=== PATIENT | male | born 1960 | race Caucasian/White ===

== ENCOUNTER 2018-09-13 15:03 | Observation (INO) | payer OTHER ==
[2018-09-13 15:34] LABS: #Basophils 0.1 thou/uL (0.0-0.2); #Eosinphils 0.4 thou/uL (0.0-0.7); #Lymphocytes 1.7 thou/uL (1.20-3.40); #Monocytes 0.7 thou/uL (0.11-0.59); %Basophils 0.7 % (0.0-1.0); %Eosinophils 4.2 % (0.0-10.0); %Lymphocytes 19.7 % (21.0-51.0); %Monocytes 7.3 % (0.0-10.0); %Neutrophils 68.1 % (42.0-75.0); Hemoglobin 15.1 g/dL (14.0-18.0); Mean Corpuscular HGB CONC 33.5 g/dL (32.0-36.0); Mean Corpuscular Hemoglobin 31.6 pg (27.0-31.0); Mean Corpuscular Volume 94.5 fL (78.0-98.0); Mean Platelet Volume 7.9 fL (7.4-10.4); Platelet Count 211 thou/uL (130-400); RBC Distribution Width 12.4 % (11.5-14.5); Red Blood Cell (RBC) Count 4.77 mill/uL (4.70-6.10); White Blood Cell (WBC) Count 8.8 thou/uL (4.8-10.8)
--- NOTE | 2018-09-13 15:56 | RAD ---
TWO VIEWS CHEST: 09/13/18 PROVIDED CLINICAL HISTORY: Chest pain. FINDINGS: Comparison 10/10/12. The cardiac and mediastinal silhouette is unchanged in appearance. Median sternotomy changes are seen . No focal consolidation, pleural fluid or pneumothorax apparent. IMPRESSION: No evidence for an acute cardiopulmonary process. POS: TPC
[2018-09-13 16:00] LABS: ALT (SGPT) 32 U/L (8-55); AST (SGOT) 21 U/L (5-34); Albumin 4.3 g/dL (3.5-5.0); Alkaline Phosphatase 71 U/L (40-150); Anion Gap 14 mmol/L (10-20); BUN (Urea Nitrogen) 14 mg/dL (8.4-25.7); Bilirubin, Total 0.6 mg/dL (0.2-1.2); CK (CPK) 89 U/L (30-200); Calc. Creatinine Clearance 0 mL/min (70-130); Calcium 9.5 mg/dL (7.8-10.44); Carbon Dioxide 29 mmol/L (22-29); Chloride 103 mmol/L (98-107); Estimated GFR-MDRD 77; Globulin 2.5 g/dL (2.4-3.5); Glucose 132 mg/dL (70-105); Potassium 4.5 mmol/L (3.5-5.1); Protein, Total 6.8 g/dL (6.0-8.3); Sodium 141 mmol/L (136-145)
[2018-09-13] MEDS ORDERED: Aspirin Chewable 81 MG TAB ONE (17:11)
[2018-09-13 19:11] LABS: Troponin I Less than 0.010 ng/mL (< 0.028)
[2018-09-13] MEDS ORDERED: Bisacodyl 5 MG TAB PO PRN (21:13)
[2018-09-13] MEDS ORDERED: Acetaminophen 325 MG TAB PO PRN (21:13)
[2018-09-13] MEDS ORDERED: hydrALAZINE 20 MG/ML VIAL SLOW IVP PRN (21:13)
[2018-09-13] MEDS ORDERED: Ondansetron PF 4 MG/2 ML Vial IVP PRN (21:13)
[2018-09-13] MEDS ORDERED: Nitroglycerin 0.4 MG TAB (25 Tab Bottle) PO PRN (21:13)
[2018-09-13] MEDS ORDERED: HYDROcodone/Acetaminophen 5/325 mg Tablet PO PRN (21:13)
[2018-09-13 21:30] VITALS: BMI 39.7
--- NOTE | 2018-09-13 21:41 | HP ---
PRIMARY CARE PHYSICIAN: Dr. Nguyen, [facility]. PRODUCTION LAPPING MACHINE OPERATOR: Dr. Barry. CHIEF COMPLAINT: Chest pain and back pain. HISTORY OF PRESENT ILLNESS: The patient is a 58-year-old male with past medical history of coronary artery disease, status post CABG and stents and hypertension , who presents to the emergency department for chest pain and back pain. The patient reports that his pain started from his back and was going to his chest. The patient felt suddenly burning sensation. The patient reported that 10 to 12 years ago he had a similar pain that was in his left arm. The patient came to the ER and was found to have blockages. The patient has stent. The patient 2 years later had another chest pain and came to the ER and was noted to have several blockages. The patient at that time needed CABG. Since then, the patient has not needed any intervention. The patient followed up with his check inspector, Dr. Barry. The patient reports he had an echo at his check inspector about 3 to 4 weeks ago. The patient during my interview, denied any chest pain at that point. The patient was reported that he is compliant with his medication. PAST MEDICAL HISTORY: Hypertension, coronary artery disease, CABG. PAST SURGICAL HISTORY: CABG and stents. ALLERGIES: NOT NOTED TO BE ANY. SOCIAL HISTORY: The patient is a past smoker, has not smoked in over 10 years. MEDICATIONS: 1. Aspirin. 2. Lisinopril. 3. Plavix. 4. Coreg. 5. Furosemide. 6. Ezeta. 7. Nitroglycerin. REVIEW OF SYSTEMS: A 10-point review of system negative other than mentioned in the HPI. PHYSICAL EXAMINATION: VITAL SIGNS: Blood pressure 137/76, pulse 62, respiration rate 20, O2 96% on room air, temperature 97.6 Fahrenheit. GENERAL AND CONSTITUTIONAL: Alert and noted in no acute distress. HEENT: Head, atraumatic. Ears and throat, grossly normal. No exudate noted. NECK: No lymphadenopathy noted. CHEST AND CARDIOVASCULAR: Nontender. Regular rate and rhythm. No murmurs, rubs, or gallops. RESPIRATORY: Clear bilaterally. No wheezes noted. ABDOMEN: Soft, nontender. Bowel sounds positive. EXTREMITIES: No edema. NEURO: The patient is alert. SKIN: No rashes noted. DIAGNOSTIC STUDIES: EKG reviewed and noted to be significant for sinus arrhythmia with premature atrial complexes. A chest x-ray reviewed and noted to be in no acute evidence of acute cardiopulmonary processes. LABORATORY DATA: The patient's labs reviewed. CBC, negative for any acute abnormality. CMP reviewed sodium 141, potassium 4.5, chloride 103, bicarb 29, BUN 14, creatinine 0.99, glucose 132. Troponin 0.011. ASSESSMENT AND PLAN: 1. Chest pain. Chest pain resolved, but given the patient's cardiac history, we will admit for acute coronary syndrome rule out. Initial troponin negative. We will trend troponins in tele. We will place a consult for check inspector to see patient in the morning given the patient's cardiac history. 2. Hypertension. Restart home medications. Hydralazine p.r.n. 3. Hyperlipidemia. Continue home medication. 4. The patient is full code. Medical power of associate attorney, the patient would like his cousin, Rohan Hoover, to be the medical power of associate attorney if he is not able to make any decision by himself. 5. Deep venous thrombosis prophylaxis addressed. Job ID: [id number] [facility] CENTERLloyd
[2018-09-13 22:17] LABS: Troponin I Less than 0.010 ng/mL (< 0.028)
[2018-09-14 01:15] LABS: Troponin I Less than 0.010 ng/mL (< 0.028)
[2018-09-14 05:33] LABS: #Basophils 0.1 thou/uL (0.0-0.2); #Eosinphils 0.3 thou/uL (0.0-0.7); #Lymphocytes 1.8 thou/uL (1.20-3.40); #Neutrophils 5.9 thou/uL (1.40-6.50); %Basophils 0.9 % (0.0-1.0); %Eosinophils 3.4 % (0.0-10.0); %Lymphocytes 19.9 % (21.0-51.0); %Monocytes 10.9 % (0.0-10.0); %Neutrophils 64.9 % (42.0-75.0); Hemoglobin 14.2 g/dL (14.0-18.0); Mean Corpuscular HGB CONC 33.3 g/dL (32.0-36.0); Mean Corpuscular Hemoglobin 31.7 pg (27.0-31.0); Mean Corpuscular Volume 95.3 fL (78.0-98.0); Mean Platelet Volume 8.1 fL (7.4-10.4); Platelet Count 186 thou/uL (130-400); RBC Distribution Width 12.2 % (11.5-14.5); Red Blood Cell (RBC) Count 4.49 mill/uL (4.70-6.10)
[2018-09-14 05:59] LABS: Anion Gap 13 mmol/L (10-20); BUN (Urea Nitrogen) 18 mg/dL (8.4-25.7); Calc. Creatinine Clearance 162 mL/min (70-130); Calcium 9.2 mg/dL (7.8-10.44); Carbon Dioxide 25 mmol/L (22-29); Chloride 104 mmol/L (98-107); Estimated GFR-MDRD Greater than 90; Glucose 108 mg/dL (70-105); Potassium 4.1 mmol/L (3.5-5.1); Sodium 138 mmol/L (136-145)
[2018-09-14] MEDS ORDERED: Enoxaparin Sodium 40 MG/0.4 ML SYRINGE SC SCH (09:00)
[2018-09-14] MEDS ORDERED: Aspirin 81 mg Enteric Coated Tablet PO SCH (09:00)
--- NOTE | 2018-09-14 11:28 | CON ---
DATE OF CONSULTATION: 09/14/2018 REASON FOR CONSULTATION: Chest pain, coronary artery disease. HISTORY OF PRESENT ILLNESS: Mr. Tian Michaud is a 58-year-old man with a long history of coronary artery disease, admitted with recurrent chest and scapular pain. Mr. Michaud states that recently he has been having pain, mostly abdominal, but has also had some in the posterior upper chest and the scapular area. He also had some pain across his chest. He takes Prilosec on a daily basis, but despite this has persisted and the Prilosec did not seem to be helping, he came to the hospital for further evaluation. Cardiac enzymes were negative here. PAST HISTORY: A very long cardiac history in 1998. He presented with a severe stenosis in the right coronary artery. He underwent successful stent implantation. It was a 3.5 mm x 25 mm TY stent nondrug coated, successfully deployed. He came back with recurrent angina in 2002. Repeat cardiac catheterization showed the stent was patent with good flow, but he had LAD diagonal bifurcation disease, which underwent internal mammary to the LAD and a saphenous vein graft to the diagonal. He re-presented with chest pain in 2004, found to be well vascularized, patent internal mammary to the LAD, patent vein graft to the diagonal, circumflex had no obstructive stenosis. Right coronary stent widely patent, 40% distal right coronary stenosis. Ejection fraction was 40% to 45% at that time. The patient has been followed with an office since then on medication, has done well with the above listed problem. MEDICATIONS: Prior to admission, he was takin. Aspirin. 2. Lipitor 80 mg a day. 3. Coreg 12.5 mg twice a day. 4. Plavix 75 mg a day. 5. Zetia. 6. Furosemide. 7. Lisinopril. 8. Nitroglycerin as needed. 9. Prilosec. REVIEW OF SYSTEMS: CONSTITUTIONAL: No significant weight gain or loss. VISION: No changes. HEARING: No changes. PULMONARY: No cough or wheezing. GASTROINTESTINAL: As outlined above. CARDIAC: As outlined above. PULMONARY: No difficulty breathing. SKIN: No rashes. NEUROLOGIC: No unilateral weakness or numbness. PSYCHIATRIC: No unusual depression or anxiety. ALLERGIES: NONE KNOWN. FAMILY HISTORY: Negative for heart disease at a young age. PHYSICAL EXAMINATION: GENERAL: This is a pleasant 58-year-old man, resting comfortably now. VITAL SIGNS: His blood pressure 130/80, pulse 90. HEENT: Eyes, sclerae nonicteric. Mouth, mucous membranes moist. NECK: Supple. No lymphadenopathy. LUNGS: Clear. No wheezing, rales, or rhonchi. CARDIAC: Normal S1, normal S2. There is no murmur, rub, or gallop. ABDOMEN: Obese, nontender. EXTREMITIES: No clubbing or cyanosis. There is no significant edema. SKIN: Warm and dry. PSYCHIATRIC: Mood and affect normal. NEUROLOGIC: Grossly normal. PERTINENT LABORATORY DATA: The hemoglobin is 14.2. Troponins are all negative less than 0.010. EKG showed sinus rhythm, some nonspecific T-wave changes and premature atrial contractions. No acute changes. ASSESSMENT: 1. Coronary artery disease with previous stent implantation in the right coronary artery in 1998, 3.5 mm x 25 mm nondrug coated stent placed at that time (TY stent). 2. Bypass surgery subsequently to the LAD and diagonal as outlined above. 3. Cardiac catheterization in 2004 showing patent grafts and no restenosis in the right coronary stent. 4. Recurrent chest pain? Angina versus gastrointestinal. 5. Hypercholesterolemia, being treated. 6. Hypertension, being treated. 7. Mild left ventricular dysfunction in the past. PLAN: 1. Cardiolite treadmill test. 2. Echocardiogram. 3. If he has abnormalities on stress test, may need repeat cardiac catheterization. Job ID: [id number]
[2018-09-14] MEDS ORDERED: Clopidogrel Bisulfate 75 MG TAB PO SCH (12:00)
[2018-09-14] MEDS ORDERED: Carvedilol 6.25 MG TAB PO SCH ×2 (14:30→17:00)
[2018-09-14] MEDS ORDERED: Ezetimibe 10 MG TAB PO SCH (14:30)
[2018-09-14] MEDS ORDERED: Lisinopril 10 MG TAB PO SCH (14:30)
--- NOTE | 2018-09-14 15:35 | NM ---
NUCLEAR MEDICINE CARDIAC STRESS WITH EF. 09/14/18 HISTORY: Chest pain. COMPARISON: None. TECHNIQUE: Patient was administered 29.90 millicuries of technetium 99m Sestamibi intravenously. FINDINGS: Homogeneous distribution of the radiotracer in the left ventricle. End diastolic volume is 76 mL. End systolic volume is 20 mL. CARDIAC GATING: Normal motion and thickening. 73% ejection fraction. IMPRESSION: 1. Homogeneous distribution of the radiotracer in the left ventricle. 2. 73% ejection fraction. POS: ANGELINA
[2018-09-14 16:44] VITALS: BP 101/72; TEMP 97.5
[2018-09-14] MEDS ORDERED: Atorvastatin Calcium 40 MG TAB PO SCH (21:00)
[2018-09-15] MEDS ORDERED: Clopidogrel Bisulfate 75 MG TAB PO SCH (09:00)
[2018-09-15] MEDS ORDERED: Aspirin 325 MG TAB PO SCH (09:00)
[2018-09-15] MEDS ORDERED: Lisinopril 10 MG TAB PO SCH (09:00)
[2018-09-15] MEDS ORDERED: Ezetimibe 10 MG TAB PO SCH (09:00)
--- NOTE | 2018-09-15 14:55 | DIS ---
DATE OF ADMISSION: 09/13/2018 DATE OF DISCHARGE: 09/14/2018 DISCHARGE DISPOSITION: Home. FOLLOWUP: 1. Follow up with primary care physician, Dr. Avila Nguyen, in 1 week. 2. Follow up with Dr. Barry in 3 to 4 weeks. ALLERGIES: NO KNOWN DRUG ALLERGIES. THE PATIENT WAS SEEN ON THE DAY OF DISCHARGE. DENIES ANY NEW COMPLAINTS. NO CHEST PAIN, SHORTNESS OF BREATH, PALPITATIONS AT THE TIME OF DISCHARGE. BRIEF HOSPITAL COURSE: The patient is a 58-year-old male with coronary artery disease, status post stent placement as well as CABG and hypertension, presented to the emergency room with chest discomfort. Please refer to the history and physical for further details. The patient was admitted to the hospital with a diagnosis of chest discomfort, rule out acute coronary syndrome. Serial troponins remain negative. The patient was evaluated by Cardiology, Dr. Barry. Stress test was performed, that was negative for reversible ischemia. Ejection fraction was 73% with no wall motion abnormalities. The patient has been started on PPI by Cardiology Service. He was also advised to reduce aspirin to 81 mg daily since he is currently on Plavix as well. He will continue all other home medications. He has been cleared by Cardiology for discharge. FINAL DIAGNOSES: 1. Chest discomfort, acute coronary syndrome ruled out. 2. Coronary artery disease, status post stent placement as well as coronary artery bypass grafting. Last cardiac catheterization was in 2004. 3. Hypertension. 4. Hyperlipidemia. 5. Obesity with a body mass index 39.3. PLAN: Plan of care was discussed with the patient in detail. He stated understanding. Job ID: [id number]
--- NOTE | 2018-09-16 17:34 | EKG ---
Test Reason : Blood Pressure : / mmHG Vent. Rate : 072 BPM Atrial Rate : 072 BPM P-R Int : 130 ms QRS Dur : 098 ms QT Int : 378 ms P-R-T Axes : 039 069 044 degrees QTc Int : 413 ms Sinus rhythm with Premature atrial complexes in a pattern of bigeminy Incomplete right bundle branch block Nonspecific ST and T wave abnormality Abnormal ECG Confirmed by MALIK HOFF, ROLF Joseph ([id number]), food editor GALLO GARCIA ([id number]) on 09/16/2018 5:34:19 PM Referred By: Confirmed By:ROLF GAN MD
== END 2018-09-14 16:54 | disposition home or self-care (01) ==
LOC: ERS 15:03 → ERHOLD 17:12 → 2SW 21:07
PROVIDERS: ADMIT Emergency Medicine; ATTEND Emergency Medicine
DX: R07.89 Other chest pain (principal); I25.10 Atherosclerotic heart disease of native coronary artery without angina pectoris; I10 Essential (primary) hypertension; E78.00 Pure hypercholesterolemia, unspecified; E66.9 Obesity, unspecified; Z68.39 Body mass index [BMI] 39.0-39.9, adult; Z95.1 Presence of aortocoronary bypass graft; Z95.5 Presence of coronary angioplasty implant and graft; Z87.891 Personal history of nicotine dependence; Z79.82 Long term (current) use of aspirin; Z79.02 Long term (current) use of antithrombotics/antiplatelets; Z79.899 Other long term (current) drug therapy
CPT/HCPCS: 36415; 71046; 78452; 80048; 80053; 82550; 84484; 85025; 93005; 93017; 94760; 96372; A9500; G0378; J1650